=== PATIENT | female | born 1995 | race Two or more races ===

== ENCOUNTER 2022-09-11 20:49 | Observation (INO) | payer MEDICAID ==
[~2022-09-11] VITALS: Ht 165.1 cm; Wt 90.7 kg
[2022-09-11] MEDS ORDERED: PREN-96 OR (21:11)
== END 2022-09-11 22:35 | disposition home or self-care (01) ==
LOC: LDRP 20:49
PROVIDERS: ADMIT Obstetrics & Gynecology; ATTEND Obstetrics & Gynecology
DX: O14.93 Unspecified pre-eclampsia, third trimester (principal); O26.893 Other specified pregnancy related conditions, third trimester; H53.8 Other visual disturbances; O12.03 Gestational edema, third trimester; Z3A.30 30 weeks gestation of pregnancy; W57.XXXA Bitten or stung by nonvenomous insect and other nonvenomous arthropods, initial encounter; Y92.89 Other specified places as the place of occurrence of the external cause; Y93.89 Activity, other specified; Y99.8 Other external cause status
CPT/HCPCS: 59025; 81002; G0378

== ENCOUNTER 2022-09-12 11:28 | Emergency (ER) | payer MEDICAID, OTHER ==
[~2022-09-12] VITALS: Ht 175.3 cm; Wt 90.0 kg
[~2022-09-12 11:28] MED LIST: PREN-96 OR
[2022-09-12 12:56] VITALS: BP 147/71
[2022-09-12] MEDS ORDERED: DexAMETHasone SOD PHOS 10MG/1ML VIAL INJ IM ONE (13:45)
== END 2022-09-12 14:26 | disposition home or self-care (01) ==
LOC: ER 11:28
DX: T63.481A Toxic effect of venom of other arthropod, accidental (unintentional), initial encounter (principal); Y92.89 Other specified places as the place of occurrence of the external cause
CPT/HCPCS: 96372; 99283; J1100

== ENCOUNTER 2022-09-21 01:25 | Observation (INO) | payer MEDICAID ==
[~2022-09-21] VITALS: Ht 175.3 cm; Wt 95.3 kg
[2022-09-21] MEDS ORDERED: LACTATED RINGER'S 1,000 ML IV ONE (02:15)
[2022-09-21] MEDS ORDERED: NIFEdipine 10 MG CAP PO ONE (02:15)
[2022-09-21] MEDS ORDERED: NIFEdipine 10 MG CAP ONE (02:36)
[2022-09-21] MEDS ORDERED: ACETAMINOPHEN 325 MG TAB PO ONE ×2 (03:45→03:49)
== END 2022-09-21 04:21 | disposition home or self-care (01) ==
LOC: LDRP 01:25
PROVIDERS: ADMIT Obstetrics & Gynecology Obstetrics; ATTEND Obstetrics & Gynecology Obstetrics
DX: O26.893 Other specified pregnancy related conditions, third trimester (principal); R51.9 Headache, unspecified; R10.11 Right upper quadrant pain; O62.9 Abnormality of forces of labor, unspecified; O99.343 Other mental disorders complicating pregnancy, third trimester; F41.9 Anxiety disorder, unspecified; Z3A.32 32 weeks gestation of pregnancy
CPT/HCPCS: 59025; 81002; 94760; 96360; 96361; G0378

== ENCOUNTER 2022-10-12 22:03 | Observation (INO) | payer MEDICAID ==
[~2022-10-12] VITALS: Ht 175.3 cm; Wt 99.8 kg
== END 2022-10-12 23:54 | disposition home or self-care (01) ==
LOC: LDRP 22:03
PROVIDERS: ADMIT Obstetrics & Gynecology; ATTEND Obstetrics & Gynecology
DX: O60.03 Preterm labor without delivery, third trimester (principal); O26.893 Other specified pregnancy related conditions, third trimester; R10.11 Right upper quadrant pain; R51.9 Headache, unspecified; R10.2 Pelvic and perineal pain; O62.9 Abnormality of forces of labor, unspecified; Z3A.35 35 weeks gestation of pregnancy
CPT/HCPCS: 59025; 81002; 94760; G0378